=== PATIENT | female | born 1950 | race Caucasian/White ===

== ENCOUNTER 2017-08-20 14:42 | Inpatient (IN) | payer OTHER ==
[2017-08-20] MEDS: SOD CHLORIDE 0.9% 1,000 ML IV ×2 (15:18→19:30)
[2017-08-20] MEDS: morphine 4 MG/ML VIAL IV (15:18)
[2017-08-20] MEDS: ONDANSETRON 4 MG INJ IV (15:18)
[2017-08-20 15:21] LABS: ADD MAN DIFF? NO
[2017-08-20 15:24] LABS: BASOPHIL # 0.1 10^3/ul (0.0-0.1); BASOPHILS % 1.1 % (0.0-2.0); EOSINOPHILS # 0.2 10^3/ul (0.0-0.5); EOSINOPHILS % 1.8 % (0.0-7.0); HEMATOCRIT 40.3 % (37.0-47.0); HEMOGLOBIN 13.8 g/dl (12.0-16.0); LYMPHOCYTES # 4.1 10^3/ul (0.8-2.9); LYMPHOCYTES % 40.2 % (15.0-51.0); MEAN CORPUSCULAR HEMOGLOBIN 29.7 pg (29.0-33.0); MEAN CORPUSCULAR HGB CONC 34.2 g/dl (32.0-37.0); MEAN CORPUSCULAR VOLUME 86.7 fl (82.0-101.0); MEAN PLATELET VOLUME 9.8 fl (7.4-10.4); MONOCYTE # 0.6 10^3/ul (0.3-0.9); NEUTROPHIL # 5.2 10^3/ul (1.6-7.5); NEUTROPHILS % 50.6 % (39.0-77.0); PLATELET COUNT 347 10^3/UL (140-415); RED BLOOD COUNT 4.65 10^6/ul (4.20-5.40); RED CELL DISTRIBUTION WIDTH 13.9 % (11.5-14.5)
[2017-08-20 15:24] LABS: WHITE BLOOD COUNT 10.2 10^3/ul (4.8-10.8)
[2017-08-20 15:43] LABS: ADD UMIC YES; UR ASCORBIC ACID NEGATIVE (NEGATIVE); UR BILIRUBIN (Dip) NEGATIVE (NEGATIVE); UR BLOOD (Dip) 3+ mg/dL (NEGATIVE); UR CLARITY SLIGHTLY CLOUDY (CLEAR); UR COLOR YELLOW (YELLOW); UR GLUCOSE (Dip) NEGATIVE (NEGATIVE); UR KETONES (Dip) TRACE mg/dL (NEGATIVE); UR LEUKOCYTE ESTERASE (Dip) TRACE Leu/ul (NEGATIVE); UR MUCUS FEW /HPF (NONE SEEN); UR NITRITE (Dip) NEGATIVE (NEGATIVE); UR RBC 82 /HPF (0-5); UR SPECIFIC GRAVITY (Dip) 1.016 (1.003-1.030); UR SQUAMOUS EPITHELIAL CELL FEW /HPF (FEW); UR TOTAL PROTEIN (Dip) 1+ mg/dl (NEGATIVE); UR UROBILINOGEN (Dip) NEGATIVE (NEGATIVE); UR WBC 2 /HPF (0-5)
[2017-08-20] MEDS: HYDROmorphONE 0.5 MG/0.5 ML SYG IV (15:46)
[2017-08-20 15:47] LABS: ALANINE AMINOTRANSFERASE 93 IU/L (13-69); ALBUMIN 4.3 g/dl (3.3-4.9); ALKALINE PHOSPHATASE 114 IU/L (42-121); AMYLASE 104 U/L (11-123); ANION GAP 19 (8-16); ASPARTATE AMINO TRANSFERASE 63 IU/L (15-46); BILIRUBIN,INDIRECT 0.2 mg/dl (0-1.1); BILIRUBIN,TOTAL 0.2 mg/dl (0.2-1.3); BLOOD UREA NITROGEN 15 mg/dl (7-20); CALCIUM 10.3 mg/dl (8.4-10.2); CARBON DIOXIDE 24 mmol/L (21-31); CHLORIDE 108 mmol/L (97-110); CREATININE 0.98 mg/dl (0.44-1.00); GLUCOSE 144 mg/dl (70-220); LIPASE 112 U/L (23-300); POTASSIUM 3.9 mmol/L (3.5-5.1); SODIUM 147 mmol/L (135-144); TOTAL PROTEIN 8.2 g/dl (6.1-8.1)
[2017-08-20 15:55] LABS: INR 0.99; PARTIAL THROMBOPLASTIN TIME 27.9 Sec (25.0-35.0); PROTIME 13.2 Sec (11.9-14.9)
[2017-08-20 16:01] LABS: TROPONIN-I < 0.012 ng/ml (0.00-0.12)
[2017-08-20] MEDS ORDERED: NITROGLYCERIN (SL) 0.4 MG TAB SL (17:30)
[2017-08-20] MEDS ORDERED: hydrALAzine 20 MG INJ IV (17:30)
[2017-08-20] MEDS ORDERED: ACETAMINOPHEN 325 MG TAB PO (17:30)
[2017-08-20] MEDS ORDERED: LORAZEPAM 2 MG INJ IV (17:30)
[2017-08-20] MEDS ORDERED: ALBUTEROL/IPRATROPIUM (NEB) 3 ML AMP HHN (17:30)
[2017-08-20] MEDS ORDERED: ONDANSETRON 4 MG INJ IV (17:30)
[2017-08-20] MEDS ORDERED: NA PHOSPHATE/BIPHOS 133 ML ENEMA PR (17:30)
[2017-08-20] MEDS ORDERED: NACL 0.9% 3 ML SYG IV (17:30)
[2017-08-20] MEDS ORDERED: DOCUSATE SODIUM 100 MG CAP PO (17:30)
[2017-08-20 18:02] LABS: FREE T4 (FREE THYROXINE) 1.36 ng/dl (0.78-2.44)
[2017-08-20 20:02] LABS: INR 1.05; PROTIME 13.8 Sec (11.9-14.9); PT RATIO 1.1
[2017-08-20 20:03] LABS: PARTIAL THROMBOPLASTIN TIME 28.2 Sec (25.0-35.0)
[2017-08-20] MEDS: TAMSULOSIN (SR) 0.4 MG CAP PO (21:07)
[2017-08-20] MEDS: HEPARIN 5,000 UNIT/0.5 ML VIAL SC (21:09)
[2017-08-20] MEDS: SOD CHLORIDE 0.45% 1,000 ML IV (23:04)
[2017-08-21] MEDS: HYDROCODONE/APAP (5/325) TAB PO ×2 (00:26→13:03)
[2017-08-21] MEDS: CEFTRIAXONE 1 GM/50 ML (PMX) 50 ML IVPB (02:59)
[2017-08-21] MEDS: morphine 2 MG INJ IV ×2 (04:51→08:36)
[2017-08-21 06:01] LABS: ADD MAN DIFF? NO
[2017-08-21] MEDS: SOD CHLORIDE 0.45% 1,000 ML IV ×2 (06:10→13:04)
[2017-08-21] MEDS: LEVOTHYROXINE 100 MCG TAB PO (06:10)
[2017-08-21] MEDS: PANTOPRAZOLE (EC) 40 MG TAB PO (06:10)
[2017-08-21 06:11] LABS: WHITE BLOOD COUNT 10.2 10^3/ul (4.8-10.8)
[2017-08-21 06:11] LABS: BASOPHIL # 0.1 10^3/ul (0.0-0.1); BASOPHILS % 0.7 % (0.0-2.0); EOSINOPHILS # 0.3 10^3/ul (0.0-0.5); EOSINOPHILS % 2.5 % (0.0-7.0); HEMATOCRIT 37.4 % (37.0-47.0); HEMOGLOBIN 12.7 g/dl (12.0-16.0); LYMPHOCYTES # 4.8 10^3/ul (0.8-2.9); LYMPHOCYTES % 47.4 % (15.0-51.0); MEAN CORPUSCULAR HEMOGLOBIN 29.7 pg (29.0-33.0); MEAN CORPUSCULAR VOLUME 87.6 fl (82.0-101.0); MEAN PLATELET VOLUME 9.8 fl (7.4-10.4); MONOCYTE # 0.8 10^3/ul (0.3-0.9); MONOCYTES % 7.5 % (0.0-11.0); NEUTROPHIL # 4.2 10^3/ul (1.6-7.5); NEUTROPHILS % 41.7 % (39.0-77.0); PLATELET COUNT 313 10^3/UL (140-415); RED BLOOD COUNT 4.27 10^6/ul (4.20-5.40)
[2017-08-21] MEDS: HYDROmorphONE 0.5 MG/0.5 ML SYG IV (06:20)
[2017-08-21 06:45] LABS: HEMOGLOBIN A1C 6.1 % (0-5.9)
[2017-08-21] MEDS: ONDANSETRON 4 MG INJ IV (06:46)
[2017-08-21 06:54] LABS: CHOLESTEROL 165 mg/dl (100-200)
[2017-08-21 06:54] LABS: CHOL/HDL RATIO 3.3 RATIO; HDL CHOLESTEROL 49 mg/dl (35-98); LDL CHOLESTEROL,CALCULATED 90 mg/dl; TRIGLYCERIDES 132 mg/dl (0-149)
[2017-08-21 06:58] LABS: ANION GAP 16 (8-16); BLOOD UREA NITROGEN 15 mg/dl (7-20); CALCIUM 9.3 mg/dl (8.4-10.2); CARBON DIOXIDE 23 mmol/L (21-31); CHLORIDE 108 mmol/L (97-110); CREATININE 0.66 mg/dl (0.44-1.00); GLUCOSE 98 mg/dl (70-220); MAGNESIUM 1.7 mg/dl (1.7-2.5); PHOSPHORUS 3.9 mg/dl (2.5-4.9); POTASSIUM 4.1 mmol/L (3.5-5.1); SODIUM 143 mmol/L (135-144)
[2017-08-21] MEDS: HEPARIN 5,000 UNIT/0.5 ML VIAL SC ×2 (08:31→21:10)
[2017-08-21] MEDS ORDERED: morphine LIQ (10 MG/5 ML) CUP PO (17:30)
[2017-08-21] MEDS: TAMSULOSIN (SR) 0.4 MG CAP PO (21:06)
[2017-08-21] MEDS: ACETAMINOPHEN 325 MG TAB PO (21:14)
[2017-08-22] MEDS: CEFTRIAXONE 1 GM/50 ML (PMX) 50 ML IVPB (02:03)
[2017-08-22] MEDS: SOD CHLORIDE 0.45% 1,000 ML IV ×4 (03:59→23:58)
[2017-08-22] MEDS: LEVOTHYROXINE 100 MCG TAB PO (05:35)
[2017-08-22] MEDS: PANTOPRAZOLE (EC) 40 MG TAB PO (05:35)
[2017-08-22 05:37] LABS: ADD MAN DIFF? NO
[2017-08-22 05:48] LABS: BASOPHIL # 0.1 10^3/ul (0.0-0.1); EOSINOPHILS # 0.3 10^3/ul (0.0-0.5); HEMATOCRIT 34.5 % (37.0-47.0); HEMOGLOBIN 11.8 g/dl (12.0-16.0); LYMPHOCYTES # 3.3 10^3/ul (0.8-2.9); LYMPHOCYTES % 52.5 % (15.0-51.0); MEAN CORPUSCULAR HEMOGLOBIN 29.9 pg (29.0-33.0); MEAN CORPUSCULAR HGB CONC 34.2 g/dl (32.0-37.0); MEAN CORPUSCULAR VOLUME 87.6 fl (82.0-101.0); MEAN PLATELET VOLUME 9.7 fl (7.4-10.4); MONOCYTE # 0.5 10^3/ul (0.3-0.9); MONOCYTES % 8.1 % (0.0-11.0); NEUTROPHIL # 2.1 10^3/ul (1.6-7.5); NEUTROPHILS % 34.2 % (39.0-77.0); PLATELET COUNT 298 10^3/UL (140-415); RED BLOOD COUNT 3.94 10^6/ul (4.20-5.40); RED CELL DISTRIBUTION WIDTH 13.9 % (11.5-14.5)
[2017-08-22 05:48] LABS: WHITE BLOOD COUNT 6.2 10^3/ul (4.8-10.8)
[2017-08-22 06:24] LABS: BLOOD UREA NITROGEN 10 mg/dl (7-20); CALCIUM 8.9 mg/dl (8.4-10.2); CARBON DIOXIDE 27 mmol/L (21-31); CHLORIDE 110 mmol/L (97-110); CREATININE 0.67 mg/dl (0.44-1.00); GLUCOSE 110 mg/dl (70-220); SODIUM 146 mmol/L (135-144)
[2017-08-22 06:47] LABS: ANION GAP 13 (8-16)
[2017-08-22 06:58] LABS: POTASSIUM 3.9 mmol/L (3.5-5.1)
[2017-08-22] MEDS: HEPARIN 5,000 UNIT/0.5 ML VIAL SC ×2 (09:00→21:00)
[2017-08-22] MEDS ORDERED: CEFAZOLIN 1 GM INJ (17:25)
[2017-08-22] MEDS ORDERED: ROCURONIUM 50 MG INJ (17:25)
[2017-08-22] MEDS ORDERED: MIDAZOLAM 1 MG/ML 2 ML INJ (17:25)
[2017-08-22] MEDS ORDERED: FENTAnyl 50 MCG/ML VIAL (17:25)
[2017-08-22] MEDS ORDERED: PROPOFOL 20 ML (17:25)
[2017-08-22] MEDS ORDERED: KETOROLAC 30 MG INJ (18:06)
[2017-08-22] MEDS ORDERED: SUGAMMADEX SODIUM 200 MG/2 ML VIAL IV (18:06)
[2017-08-22] MEDS ORDERED: ONDANSETRON 4 MG INJ (18:06)
[2017-08-22] MEDS ORDERED: DEXAMETHASONE 4 MG/ML 1 ML INJ (18:06)
[2017-08-22] MEDS ORDERED: METOCLOPRAMIDE 10 MG INJ (18:06)
[2017-08-22] MEDS ORDERED: ONDANSETRON 4 MG INJ IV (18:30)
[2017-08-22] MEDS ORDERED: EPHEDrine SULFATE 50 MG/5 ML SYG IV (18:30)
[2017-08-22] MEDS ORDERED: METOCLOPRAMIDE 10 MG INJ IV (18:30)
[2017-08-22] MEDS ORDERED: hydrALAzine 20 MG INJ IV (18:30)
[2017-08-22] MEDS ORDERED: LABETALOL HCL 20MG INJ IV (18:30)
[2017-08-22] MEDS ORDERED: KETOROLAC 30 MG INJ IV (18:30)
[2017-08-22] MEDS ORDERED: MEPERIDINE 25 MG INJ IV (18:30)
[2017-08-22] MEDS ORDERED: OXYCODONE/ACETAMINOPHEN (5/325) TAB PO ×2 (18:30)
[2017-08-22] MEDS ORDERED: FENTAnyl 50 MCG/ML VIAL IV ×3 (18:30)
[2017-08-22] MEDS ORDERED: DIPHENHYDRAMINE 50 MG INJ IV (18:30)
[2017-08-22] MEDS ORDERED: HYDROmorphONE (0.2 MG/ML) 10ML SYG IV ×3 (18:30)
[2017-08-22] MEDS: TAMSULOSIN (SR) 0.4 MG CAP PO (21:26)
[2017-08-23] MEDS: HYDROCODONE/APAP (5/325) TAB PO ×2 (00:19→10:14)
[2017-08-23] MEDS: CEFTRIAXONE 1 GM/50 ML (PMX) 50 ML IVPB (02:32)
[2017-08-23 05:57] LABS: ADD MAN DIFF? NO
[2017-08-23 06:05] LABS: BASOPHILS % 0.5 % (0.0-2.0); HEMATOCRIT 35.3 % (37.0-47.0); LYMPHOCYTES # 1.9 10^3/ul (0.8-2.9); LYMPHOCYTES % 32.9 % (15.0-51.0); MEAN CORPUSCULAR HEMOGLOBIN 29.6 pg (29.0-33.0); MEAN CORPUSCULAR VOLUME 86.9 fl (82.0-101.0); MONOCYTE # 0.2 10^3/ul (0.3-0.9); MONOCYTES % 3.5 % (0.0-11.0); NEUTROPHIL # 3.5 10^3/ul (1.6-7.5); NEUTROPHILS % 62.7 % (39.0-77.0); PLATELET COUNT 307 10^3/UL (140-415); RED BLOOD COUNT 4.06 10^6/ul (4.20-5.40); RED CELL DISTRIBUTION WIDTH 13.7 % (11.5-14.5)
[2017-08-23 06:05] LABS: WHITE BLOOD COUNT 5.7 10^3/ul (4.8-10.8)
[2017-08-23] MEDS: LEVOTHYROXINE 100 MCG TAB PO (06:24)
[2017-08-23] MEDS: PANTOPRAZOLE (EC) 40 MG TAB PO (06:24)
[2017-08-23 06:38] LABS: ANION GAP 16 (8-16); BLOOD UREA NITROGEN 8 mg/dl (7-20); CALCIUM 9.1 mg/dl (8.4-10.2); CARBON DIOXIDE 25 mmol/L (21-31); CHLORIDE 106 mmol/L (97-110); CREATININE 0.62 mg/dl (0.44-1.00); GLUCOSE 162 mg/dl (70-220); POTASSIUM 3.9 mmol/L (3.5-5.1); SODIUM 143 mmol/L (135-144)
[2017-08-23] MEDS: HEPARIN 5,000 UNIT/0.5 ML VIAL SC ×2 (08:32→21:00)
[2017-08-23] MEDS: SOD CHLORIDE 0.45% 1,000 ML IV ×3 (08:50→19:58)
[2017-08-23] MEDS: MAGNESIUM HYDROXIDE 30ML CUP PO (15:11)
[2017-08-23] MEDS: LISINOPRIL 5 MG TAB PO (21:06)
[2017-08-23] MEDS: TAMSULOSIN (SR) 0.4 MG CAP PO (21:06)
[2017-08-23] MEDS: hydrALAzine 20 MG INJ IV (21:07)
== END 2017-08-23 22:55 | disposition home or self-care (01) | DRG 694 ==
LOC: E/R 14:42 → MS2 18:34
PROVIDERS: Internal Medicine
PROC: 0T778DZ Dilation of Left Ureter with Intraluminal Device, Via Natural or Artificial Opening Endoscopic (ICD-10-PCS; principal; 2017-08-22 12:30)
DX: N13.2 Hydronephrosis with renal and ureteral calculous obstruction (principal); E03.9 Hypothyroidism, unspecified; I10 Essential (primary) hypertension; R31.0 Gross hematuria
CPT/HCPCS: 74018; 74176; 74430; 76775; 80048; 80053; 80061; 81001; 82150; 83036; 83690; 83735; 84100; 84439; 84443; 84484; 85025; 85610; 85730; 87086; 93005; 96374; 96375; 97116; 97164; 97530; 99285-25

== ENCOUNTER 2017-09-04 17:04 | Emergency (ER) | payer OTHER ==
[2017-09-04] MEDS: ONDANSETRON 4 MG INJ IV (18:07)
[2017-09-04] MEDS: KETOROLAC 30 MG INJ IV (18:07)
[2017-09-04] MEDS: SOD CHLORIDE 0.9% 1,000 ML IV (18:07)
[2017-09-04 18:22] LABS: ADD MAN DIFF? NO
[2017-09-04 18:26] LABS: WHITE BLOOD COUNT 10.3 10^3/ul (4.8-10.8)
[2017-09-04 18:26] LABS: BASOPHIL # 0.1 10^3/ul (0.0-0.1); BASOPHILS % 0.9 % (0.0-2.0); EOSINOPHILS # 0.3 10^3/ul (0.0-0.5); EOSINOPHILS % 3.1 % (0.0-7.0); HEMATOCRIT 38.6 % (37.0-47.0); HEMOGLOBIN 12.8 g/dl (12.0-16.0); LYMPHOCYTES # 4.2 10^3/ul (0.8-2.9); LYMPHOCYTES % 41.1 % (15.0-51.0); MEAN CORPUSCULAR HEMOGLOBIN 29.2 pg (29.0-33.0); MEAN CORPUSCULAR HGB CONC 33.2 g/dl (32.0-37.0); MEAN CORPUSCULAR VOLUME 88.1 fl (82.0-101.0); MEAN PLATELET VOLUME 9.6 fl (7.4-10.4); MONOCYTE # 1.1 10^3/ul (0.3-0.9); MONOCYTES % 10.4 % (0.0-11.0); NEUTROPHIL # 4.5 10^3/ul (1.6-7.5); NEUTROPHILS % 44.3 % (39.0-77.0); PLATELET COUNT 360 10^3/UL (140-415); RED BLOOD COUNT 4.38 10^6/ul (4.20-5.40); RED CELL DISTRIBUTION WIDTH 13.8 % (11.5-14.5)
[2017-09-04 18:35] LABS: ADD UMIC YES; UR ASCORBIC ACID NEGATIVE (NEGATIVE); UR BACTERIA FEW /HPF (NONE SEEN); UR BILIRUBIN (Dip) NEGATIVE (NEGATIVE); UR BLOOD (Dip) 2+ mg/dL (NEGATIVE); UR CLARITY CLEAR (CLEAR); UR COLOR AMBER (YELLOW); UR GLUCOSE (Dip) NEGATIVE (NEGATIVE); UR KETONES (Dip) NEGATIVE (NEGATIVE); UR LEUKOCYTE ESTERASE (Dip) NEGATIVE Leu/ul (NEGATIVE); UR NITRITE (Dip) POSITIVE (NEGATIVE); UR RBC 132 /HPF (0-5); UR SPECIFIC GRAVITY (Dip) 1.011 (1.003-1.030); UR TOTAL PROTEIN (Dip) NEGATIVE (NEGATIVE); UR UROBILINOGEN (Dip) 2+ mg/dL (NEGATIVE); UR WBC 6 /HPF (0-5)
[2017-09-04 18:42] LABS: ALANINE AMINOTRANSFERASE 94 IU/L (13-69); ALBUMIN/GLOBULIN RATIO 1.11; ALKALINE PHOSPHATASE 103 IU/L (42-121); AMYLASE 99 U/L (11-123); ANION GAP 12 (8-16); ASPARTATE AMINO TRANSFERASE 68 IU/L (15-46); BILIRUBIN,INDIRECT 0.3 mg/dl (0-1.1); BILIRUBIN,TOTAL 0.3 mg/dl (0.2-1.3); BLOOD UREA NITROGEN 16 mg/dl (7-20); CALCIUM 10.1 mg/dl (8.4-10.2); CARBON DIOXIDE 30 mmol/L (21-31); CHLORIDE 106 mmol/L (97-110); CREATININE 0.87 mg/dl (0.44-1.00); GLUCOSE 104 mg/dl (70-220); LIPASE 95 U/L (23-300); POTASSIUM 4.5 mmol/L (3.5-5.1); SODIUM 143 mmol/L (135-144); TOTAL PROTEIN 7.6 g/dl (6.1-8.1)
[2017-09-04 18:47] LABS: INR 1.07; PT RATIO 1.1
[2017-09-04 18:48] LABS: PARTIAL THROMBOPLASTIN TIME 27.5 Sec (25.0-35.0)
[2017-09-04] MEDS: CEFTRIAXONE 1 GM/50 ML (PMX) 50 ML IVPB (19:55)
== END 2017-09-04 20:29 | disposition home or self-care (01) ==
LOC: FTE 17:04
DX: N20.1 Calculus of ureter (principal); N39.0 Urinary tract infection, site not specified; I10 Essential (primary) hypertension; E03.9 Hypothyroidism, unspecified; R10.9 Unspecified abdominal pain
CPT/HCPCS: 36415; 74176; 80053; 81001; 82150; 83690; 85025; 85610; 85730; 87086; 96374; 96375; 99285-25

== ENCOUNTER 2017-09-11 15:01 | Emergency (ER) | payer OTHER, MEDICARE ==
[2017-09-11 16:19] LABS: URINE PH (Dip) POC 5.5 (5.0-8.5)
[2017-09-11 16:19] LABS: URINE BLOOD (Dip) POC 2+ (NEGATIVE); URINE GLUCOSE (Dip) POC Negative (NEGATIVE); URINE KETONES (Dip) POC Negative (NEGATIVE); URINE LEUKOCYTE EST (Dip) POC Trace (NEGATIVE); URINE NITRITE (Dip) POC Negative (NEGATIVE); URINE TOTAL PROTEIN POC Trace (NEGATIVE)
[2017-09-11] MEDS: ONDANSETRON 4 MG INJ IV (16:24)
[2017-09-11] MEDS: morphine 2 MG INJ IV (16:25)
[2017-09-11] MEDS: KETOROLAC 15 MG INJ IV (16:25)
[2017-09-11 16:49] LABS: ADD MAN DIFF? NO
[2017-09-11 16:54] LABS: BASOPHIL # 0.1 10^3/ul (0.0-0.1); BASOPHILS % 0.7 % (0.0-2.0); EOSINOPHILS # 0.2 10^3/ul (0.0-0.5); EOSINOPHILS % 2.8 % (0.0-7.0); HEMOGLOBIN 12.9 g/dl (12.0-16.0); LYMPHOCYTES # 3.3 10^3/ul (0.8-2.9); MEAN CORPUSCULAR HEMOGLOBIN 30.1 pg (29.0-33.0); MEAN CORPUSCULAR HGB CONC 33.9 g/dl (32.0-37.0); MEAN CORPUSCULAR VOLUME 88.8 fl (82.0-101.0); MEAN PLATELET VOLUME 9.7 fl (7.4-10.4); MONOCYTE # 0.7 10^3/ul (0.3-0.9); MONOCYTES % 8.5 % (0.0-11.0); NEUTROPHIL # 4.3 10^3/ul (1.6-7.5); NEUTROPHILS % 49.8 % (39.0-77.0); PLATELET COUNT 329 10^3/UL (140-415); RED BLOOD COUNT 4.28 10^6/ul (4.20-5.40); RED CELL DISTRIBUTION WIDTH 13.6 % (11.5-14.5)
[2017-09-11 16:54] LABS: WHITE BLOOD COUNT 8.6 10^3/ul (4.8-10.8)
[2017-09-11 17:28] LABS: ALANINE AMINOTRANSFERASE 94 IU/L (13-69); ALBUMIN 4.2 g/dl (3.3-4.9); ALKALINE PHOSPHATASE 87 IU/L (42-121); ANION GAP 15 (8-16); ASPARTATE AMINO TRANSFERASE 80 IU/L (15-46); BILIRUBIN,INDIRECT 0.3 mg/dl (0-1.1); BILIRUBIN,TOTAL 0.3 mg/dl (0.2-1.3); BLOOD UREA NITROGEN 13 mg/dl (7-20); CALCIUM 9.9 mg/dl (8.4-10.2); CARBON DIOXIDE 25 mmol/L (21-31); CHLORIDE 106 mmol/L (97-110); CREATININE 0.77 mg/dl (0.44-1.00); GLUCOSE 118 mg/dl (70-220); LIPASE 93 U/L (23-300); POTASSIUM 4.1 mmol/L (3.5-5.1); SODIUM 142 mmol/L (135-144)
== END 2017-09-11 17:57 | disposition home or self-care (01) ==
LOC: FTE 15:01
DX: N20.1 Calculus of ureter (principal); I10 Essential (primary) hypertension
CPT/HCPCS: 36415; 80053; 81003; 83690; 85025; 96374; 96375; 99284-25

== ENCOUNTER 2017-10-04 18:17 | Emergency (ER) | payer OTHER ==
[2017-10-04 19:00] LABS: ADD MAN DIFF? NO
[2017-10-04 19:16] LABS: ALANINE AMINOTRANSFERASE 103 IU/L (13-69); ALBUMIN 4.6 g/dl (3.3-4.9); ALBUMIN/GLOBULIN RATIO 1.17; ALKALINE PHOSPHATASE 111 IU/L (42-121); ANION GAP 18 (8-16); ASPARTATE AMINO TRANSFERASE 94 IU/L (15-46); BILIRUBIN,INDIRECT 0.4 mg/dl (0-1.1); BILIRUBIN,TOTAL 0.4 mg/dl (0.2-1.3); BLOOD UREA NITROGEN 15 mg/dl (7-20); CALCIUM 9.8 mg/dl (8.4-10.2); CARBON DIOXIDE 21 mmol/L (21-31); CHLORIDE 108 mmol/L (97-110); CREATININE 0.86 mg/dl (0.44-1.00); GLUCOSE 107 mg/dl (70-220); SODIUM 143 mmol/L (135-144); TOTAL PROTEIN 8.5 g/dl (6.1-8.1)
[2017-10-04 19:23] LABS: ADD UMIC YES; UR ASCORBIC ACID 40 mg/dL (NEGATIVE); UR BILIRUBIN (Dip) NEGATIVE (NEGATIVE); UR BLOOD (Dip) 3+ mg/dL (NEGATIVE); UR BUDDING YEAST MODERATE /HPF (NONE SEEN); UR CLARITY SLIGHTLY CLOUDY (CLEAR); UR COLOR YELLOW (YELLOW); UR GLUCOSE (Dip) NEGATIVE (NEGATIVE); UR KETONES (Dip) TRACE mg/dL (NEGATIVE); UR LEUKOCYTE ESTERASE (Dip) 1+ Leu/ul (NEGATIVE); UR MUCUS FEW /HPF (NONE SEEN); UR NITRITE (Dip) NEGATIVE (NEGATIVE); UR RBC > 182 /HPF (0-5); UR SPECIFIC GRAVITY (Dip) 1.019 (1.003-1.030); UR SQUAMOUS EPITHELIAL CELL FEW /HPF (FEW); UR TOTAL PROTEIN (Dip) 2+ mg/dl (NEGATIVE); UR UROBILINOGEN (Dip) NEGATIVE (NEGATIVE); UR WBC 8 /HPF (0-5)
[2017-10-04] MEDS: ONDANSETRON 4 MG INJ IV (19:29)
[2017-10-04] MEDS: HYDROmorphONE 1 MG/5 ML IV SYRINGE IV (19:29)
[2017-10-04 21:00] LABS: BASOPHIL # 0.1 10^3/ul (0.0-0.1); EOSINOPHILS # 0.2 10^3/ul (0.0-0.5); EOSINOPHILS % 2.4 % (0.0-7.0); HEMATOCRIT 36.9 % (37.0-47.0); HEMOGLOBIN 12.4 g/dl (12.0-16.0); LYMPHOCYTES # 3.2 10^3/ul (0.8-2.9); LYMPHOCYTES % 45.3 % (15.0-51.0); MEAN CORPUSCULAR HEMOGLOBIN 29.5 pg (29.0-33.0); MEAN CORPUSCULAR HGB CONC 33.6 g/dl (32.0-37.0); MEAN CORPUSCULAR VOLUME 87.9 fl (82.0-101.0); MEAN PLATELET VOLUME 9.4 fl (7.4-10.4); MONOCYTE # 0.7 10^3/ul (0.3-0.9); MONOCYTES % 9.9 % (0.0-11.0); NEUTROPHILS % 41.3 % (39.0-77.0); PLATELET COUNT 303 10^3/UL (140-415); RED CELL DISTRIBUTION WIDTH 13.5 % (11.5-14.5)
[2017-10-04 21:00] LABS: WHITE BLOOD COUNT 7.2 10^3/ul (4.8-10.8)
== END 2017-10-04 21:49 | disposition home or self-care (01) ==
LOC: E/R 18:17
DX: N21.1 Calculus in urethra (principal); I10 Essential (primary) hypertension
CPT/HCPCS: 36415; 74176; 80053; 81001; 85025; 96374; 96375; 99285-25

== ENCOUNTER 2018-02-07 15:00 | Emergency (ER) | payer OTHER ==
[2018-02-07] MEDS: KETOROLAC 60 MG INJ IM (19:26)
== END 2018-02-07 20:57 | disposition home or self-care (01) ==
LOC: FTE 15:00
DX: M25.562 Pain in left knee (principal); M25.511 Pain in right shoulder; I10 Essential (primary) hypertension; E03.9 Hypothyroidism, unspecified; R51 Headache
CPT/HCPCS: 29505; 70450; 71045; 72100; 72125; 72170; 73030-RT; 73562; 73600-50; 96372; 99285-25

== ENCOUNTER 2018-10-14 11:37 | Emergency (ER) | payer OTHER ==
[2018-10-14 12:28] LABS: ADD MAN DIFF? NO
[2018-10-14 12:31] LABS: BASOPHIL # 0.1 10^3/ul (0.0-0.1); BASOPHILS % 0.9 % (0.0-2.0); EOSINOPHILS # 0.2 10^3/ul (0.0-0.5); EOSINOPHILS % 2.5 % (0.0-7.0); HEMATOCRIT 40.8 % (37.0-47.0); HEMOGLOBIN 13.7 g/dl (12.0-16.0); LYMPHOCYTES # 3.1 10^3/ul (0.8-2.9); LYMPHOCYTES % 40.8 % (15.0-51.0); MEAN CORPUSCULAR HEMOGLOBIN 29.2 pg (29.0-33.0); MEAN CORPUSCULAR HGB CONC 33.6 g/dl (32.0-37.0); MEAN PLATELET VOLUME 9.5 fl (7.4-10.4); MONOCYTE # 0.9 10^3/ul (0.3-0.9); MONOCYTES % 11.5 % (0.0-11.0); NEUTROPHIL # 3.4 10^3/ul (1.6-7.5); PLATELET COUNT 320 10^3/UL (140-415); RED BLOOD COUNT 4.69 10^6/ul (4.20-5.40); RED CELL DISTRIBUTION WIDTH 13.6 % (11.5-14.5)
[2018-10-14 12:31] LABS: WHITE BLOOD COUNT 7.7 10^3/ul (4.8-10.8)
[2018-10-14 12:56] LABS: ANION GAP 9 (5-13); BLOOD UREA NITROGEN 17 mg/dl (7-20); CALCIUM 9.9 mg/dl (8.4-10.2); CARBON DIOXIDE 27 mmol/L (21-31); CHLORIDE 106 mmol/L (97-110); CREATININE 0.69 mg/dl (0.44-1.00); Estimated GFR > 60 mL/min (>60); GLUCOSE 108 mg/dl (70-220); POTASSIUM 4.3 mmol/L (3.5-5.1); SODIUM 142 mmol/L (135-144)
== END 2018-10-14 14:54 | disposition home or self-care (01) ==
LOC: E/R 11:37
DX: M25.562 Pain in left knee (principal); I10 Essential (primary) hypertension
CPT/HCPCS: 73562; 80048; 85025; 99284-25